=== PATIENT | male | born 1995 | race Two or more races ===

== ENCOUNTER 2022-08-28 09:13 | Emergency (ER) | payer OTHER ==
[~2022-08-28] VITALS: Ht 177.8 cm; Wt 81.6 kg
--- NOTE | 2022-08-28 09:22 | NUR ---
DR LAFLEUR AT THE BEDSIDE
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
--- NOTE | 2022-08-28 09:24 | NUR ---
emt at bedside for woundcare
--- NOTE | 2022-08-28 09:27 | NUR ---
xray at bedside
[2022-08-28] MEDS ORDERED: TDAP [DIPH/PERTUSSIS/TET] 0.5 ML VIAL IM ONE (09:30)
[2022-08-28] MEDS: BACI/NEOM/POLY B OINT PKT 1 UDPKT PACKET TP ONE (09:37)
[2022-08-28] MEDS: TDAP [DIPH/PERTUSSIS/TET] 0.5 ML VIAL IM ONE (09:38)
[2022-08-28] MEDS ORDERED: IBUP-1955 PO (10:41)
[2022-08-28 11:01] VITALS: BP 119/76
--- NOTE | 2022-08-28 11:01 | NUR ---
Patient discharged to home in stable condition. Written and verbal after care instructions given. Patient verbalizes understanding of instruction.
== END 2022-08-28 11:01 | disposition home or self-care (01) ==
LOC: ER 09:31
DX: S61.235A Puncture wound without foreign body of left ring finger without damage to nail, initial encounter (principal); W20.8XXA Other cause of strike by thrown, projected or falling object, initial encounter; Y93.89 Activity, other specified; Y92.89 Other specified places as the place of occurrence of the external cause; Y99.8 Other external cause status
CPT/HCPCS: 99283; 90471; 90715; 73140; A6403